=== PATIENT | female | born 1960 | race Caucasian/White ===

== ENCOUNTER → 2023-08-17 11:45 | Outpatient (REF) | payer BC, SELFPAY | LOC: HWRAD 11:45 | PROVIDERS: ATTENDING PHYSICIAN Otolaryngology Facial Plastic Surgery; FAMILY PHYSICIAN Family Medicine | DX: J33.0 Polyp of nasal cavity (principal); J32.2 Chronic ethmoidal sinusitis; J32.0 Chronic maxillary sinusitis | CPT/HCPCS: 70486 ==

== ENCOUNTER → 2023-10-05 06:28 | Day surgery (SDC) | payer BC, SELFPAY | LOC: GI 06:28 | PROVIDERS: ATTENDING PHYSICIAN Internal Medicine Gastroenterology; FAMILY PHYSICIAN Family Medicine | DX: D12.2 Benign neoplasm of ascending colon (principal); K63.5 Polyp of colon; K62.1 Rectal polyp; Z86.010 Personal history of colon polyps | CPT/HCPCS: 45385; 45380; 88305 ==

== ENCOUNTER → 2023-10-08 10:16 | Outpatient (REF) | payer BC, SELFPAY | LOC: RCS 10:16 | PROVIDERS: ATTENDING PHYSICIAN Nuclear Medicine Nuclear Cardiology; FAMILY PHYSICIAN Family Medicine | DX: I48.0 Paroxysmal atrial fibrillation (principal); E78.00 Pure hypercholesterolemia, unspecified; E78.5 Hyperlipidemia, unspecified; Z87.891 Personal history of nicotine dependence; I63.89 Other cerebral infarction | CPT/HCPCS: 93306 ==

== ENCOUNTER → 2023-10-16 11:10 | Outpatient (REF) | payer BC, SELFPAY | LOC: WDC 11:10 | PROVIDERS: ATTENDING PHYSICIAN Nurse Practitioner Adult Health; FAMILY PHYSICIAN Family Medicine | DX: Z12.31 Encounter for screening mammogram for malignant neoplasm of breast (principal) | CPT/HCPCS: 77063; 77067 ==

== ENCOUNTER → 2023-10-23 10:21 | Outpatient (REF) | payer BC, SELFPAY | LOC: WDC 10:21 | PROVIDERS: ATTENDING PHYSICIAN Nurse Practitioner Adult Health; FAMILY PHYSICIAN Family Medicine | DX: R92.8 Other abnormal and inconclusive findings on diagnostic imaging of breast (principal) | CPT/HCPCS: 76642 ==

== ENCOUNTER 2023-10-26 06:26 | Day surgery (SDC) | payer BC, SELFPAY ==
[2023-10-12 08:58] VITALS: BMI 34.3
[2023-10-12 10:32] LABS: Hematocrit 42.6 % (37.0-47.0); Hemoglobin 14.4 g/dL (12.0-16.0); Mean Corp Hgb Conc. 33.8 g/dL (33.0-37.0); Mean Corpuscular Hgb 28.1 pg (27.0-31.0); Mean Corpuscular Volume 83.2 fL (81.0-99.0); Mean Platelet Volume 11.7 fL (7.4-10.4); Platelet Count 283 10^3/uL (130-400); Red Blood Cell Count 5.12 10^6/uL (4.20-5.40); Red Cell Dist. Width 13.6 % (11.5-14.5); White Blood Cell Count 8.3 10^3/uL (4.8-10.8)
[2023-10-12 11:05] LABS: ALT (SGPT) 34 U/L (0-35); AST (SGOT) 30 U/L (14-36); Albumin 4.3 g/dl (3.5-5.0); Alkaline Phosphatase 95 U/L (38-126); Blood Urea Nitrogen 24 mg/dl (7-17); Calcium 9.4 mg/dl (8.4-10.2); Carbon Dioxide 25 mmol/L (22-30); Chloride 107 mmol/L (98-107); Estimated Creatinine Clearance 79 ml/min; Glucose 101 mg/dl (70-99); Potassium 4.4 mmol/L (3.5-5.1); Sodium 141 mmol/L (135-145); Total Bilirubin 0.5 mg/dl (0.2-1.3); eGFR > 60.00
[2023-10-26] VITALS (7 sets, daily range): BP systolic 114–139; BP diastolic 56–77
[2023-10-26] MEDS: TYLENOL 1000 MG PO (11:28)
[2023-10-26] MEDS: NORMOSOL-R 1000 IV (11:29)
[2023-10-26] MEDS: SUBLIMAZE 25 MCG IV (14:19)
== END 2023-10-26 15:45 | disposition home or self-care (01) ==
LOC: SDS 06:26
PROVIDERS: ATTENDING PHYSICIAN Otolaryngology Facial Plastic Surgery; FAMILY PHYSICIAN Family Medicine; OTHER PHYSICIAN Nuclear Medicine Nuclear Cardiology
DX: J32.9 Chronic sinusitis, unspecified (principal); J33.9 Nasal polyp, unspecified; J34.3 Hypertrophy of nasal turbinates; Z87.891 Personal history of nicotine dependence
CPT/HCPCS: 31276; 31254; 31288; 30140; 31267; 88304; 88311; 36415; 80053; 85027

== ENCOUNTER → 2023-12-05 12:55 | Outpatient (REF) | payer BC, SELFPAY | LOC: RAD 12:55 | PROVIDERS: ATTENDING PHYSICIAN Family Medicine | DX: G44.52 New daily persistent headache (NDPH) (principal); Z98.890 Other specified postprocedural states; H57.89 Other specified disorders of eye and adnexa | CPT/HCPCS: 70486 ==

== ENCOUNTER → 2024-02-05 12:39 | Outpatient (REF) | payer BC, SELFPAY | LOC: RAD 12:39 | PROVIDERS: ATTENDING PHYSICIAN Nurse Practitioner Adult Health; FAMILY PHYSICIAN Family Medicine | DX: Z01.818 Encounter for other preprocedural examination (principal) | CPT/HCPCS: 71046 ==

== ENCOUNTER → 2024-02-13 17:23 | Outpatient (REF) | payer BC, SELFPAY | LOC: MRI 17:23 | PROVIDERS: ATTENDING PHYSICIAN Nurse Practitioner Adult Health; FAMILY PHYSICIAN Family Medicine | DX: I63.9 Cerebral infarction, unspecified (principal); R26.89 Other abnormalities of gait and mobility; R51.9 Headache, unspecified | CPT/HCPCS: 70544; 70553; A9575 ==

== ENCOUNTER → 2024-10-16 11:52 | Outpatient (REF) | payer OTHER, SELFPAY | LOC: WDC 11:52 | PROVIDERS: ATTENDING PHYSICIAN Nurse Practitioner Adult Health; FAMILY PHYSICIAN Family Medicine | DX: Z12.31 Encounter for screening mammogram for malignant neoplasm of breast (principal) | CPT/HCPCS: 77063; 77067 ==

== ENCOUNTER → 2024-10-30 09:16 | Outpatient (REF) | payer OTHER, SELFPAY | LOC: WDC 09:16 | PROVIDERS: ATTENDING PHYSICIAN Nurse Practitioner Adult Health; FAMILY PHYSICIAN Family Medicine | DX: R92.8 Other abnormal and inconclusive findings on diagnostic imaging of breast (principal) | CPT/HCPCS: 76642 ==

== ENCOUNTER → 2024-10-31 13:03 | Outpatient (REF) | payer OTHER, SELFPAY | LOC: RAD 13:03 | PROVIDERS: ATTENDING PHYSICIAN Nurse Practitioner Adult Health; FAMILY PHYSICIAN Family Medicine | DX: M85.80 Other specified disorders of bone density and structure, unspecified site (principal) | CPT/HCPCS: 77080 ==